=== PATIENT | female | born 1960 | race Caucasian/White ===

== ENCOUNTER 2019-11-26 11:46 | Emergency (ER) | payer MEDICAID ==
[~2019-11-26] VITALS: Ht 177.8 cm; Wt 90.0 kg
[2019-11-26 12:51] LABS: CLARITY,URINE CLEAR (Clear); COLOR,URINE YELLOW (Yellow); PROTEIN,URINE NEGATIVE (Neg)
[2019-11-26 12:52] LABS: GLUCOSE, URINE NEGATIVE (Neg); KETONES,URINE NEGATIVE (Neg); LEUKOCYTE ESTERASE ,URINE NEGATIVE (Neg); NITRITES, URINE NEGATIVE (Neg); OCCULT BLOOD,URINE NEGATIVE (Neg); UA COLLECTION TYPE CLN CATCH MIDSTREAM; UROBILINOGEN,URINE 0.2 E.U/dL (0.2-1.0)
[2019-11-26] MEDS ORDERED: LIDO700A32 TOP (12:52)
[2019-11-26] MEDS ORDERED: MELO-102 PO (12:52)
[2019-11-26] MEDS ORDERED: ketorolac trometh inj. 60 MG/2 ML VIAL IM ONE (12:55)
[2019-11-26 13:12] VITALS: BP 130/83
== END 2019-11-26 13:13 | disposition home or self-care (01) ==
LOC: ER 11:47
DX: M54.5 Low back pain (principal); M10.9 Gout, unspecified; R53.1 Weakness
CPT/HCPCS: 81003; 96372; 99283; J1885